=== PATIENT | female | born 1965 | race Caucasian/White ===

== ENCOUNTER → 2023-08-22 09:46 | Outpatient (REF) | payer BC, SELFPAY | LOC: WDC 09:46 | PROVIDERS: ATTENDING PHYSICIAN Obstetrics & Gynecology; FAMILY PHYSICIAN Physician Assistant | DX: N63.20 Unspecified lump in the left breast, unspecified quadrant (principal); N63.24 Unspecified lump in the left breast, lower inner quadrant | CPT/HCPCS: 76642; 77061; 77065 ==

== ENCOUNTER → 2024-01-26 09:07 | Outpatient (REF) | payer BC, SELFPAY | LOC: RAD 09:07 | PROVIDERS: ATTENDING PHYSICIAN Physician Assistant | DX: K21.9 Gastro-esophageal reflux disease without esophagitis (principal); R10.12 Left upper quadrant pain | CPT/HCPCS: 74246 ==

== ENCOUNTER → 2024-02-05 14:03 | Outpatient (REF) | payer BC, SELFPAY | LOC: HWWDC 14:03 | PROVIDERS: ATTENDING PHYSICIAN Obstetrics & Gynecology; FAMILY PHYSICIAN Physician Assistant | DX: Z12.31 Encounter for screening mammogram for malignant neoplasm of breast (principal) | CPT/HCPCS: 77063; 77067 ==

== ENCOUNTER → 2024-04-21 13:51 | Outpatient (REF) | payer BC, SELFPAY | LOC: HWRAD 13:51 | PROVIDERS: ATTENDING PHYSICIAN Internal Medicine Cardiovascular Disease; FAMILY PHYSICIAN Physician Assistant | DX: E78.2 Mixed hyperlipidemia (principal); Z82.49 Family history of ischemic heart disease and other diseases of the circulatory system | CPT/HCPCS: 75571 ==

== ENCOUNTER → 2024-06-01 14:46 | Outpatient (REF) | payer BC, SELFPAY | LOC: RAD 14:46 | PROVIDERS: ATTENDING PHYSICIAN Physician Assistant | DX: M79.672 Pain in left foot (principal) | CPT/HCPCS: 73630 ==

== ENCOUNTER → 2025-02-08 10:09 | Outpatient (REF) | payer BC, SELFPAY | LOC: WDC 10:09 | PROVIDERS: ATTENDING PHYSICIAN Student in an Organized Health Care Education/Training Program; FAMILY PHYSICIAN Physician Assistant | DX: N63.23 Unspecified lump in the left breast, lower outer quadrant (principal) | CPT/HCPCS: 76642; 77062; 77066 ==

== ENCOUNTER → 2025-02-14 12:55 | Outpatient (REF) | payer BC, SELFPAY | LOC: RAD 12:55 | PROVIDERS: ATTENDING PHYSICIAN Physician Assistant | DX: R93.89 Abnormal findings on diagnostic imaging of other specified body structures (principal); J43.9 Emphysema, unspecified | CPT/HCPCS: 71260; Q9967 ==